=== PATIENT | female | born 1950 | race Caucasian/White ===

== ENCOUNTER → 2017-11-06 19:00 | Outpatient (CLI) | payer MEDICARE, BC | END | disposition home or self-care (01) | LOC: D.MAMMO 10:00 | DX: Z12.31 Encounter for screening mammogram for malignant neoplasm of breast (principal) ==

== ENCOUNTER → 2019-11-11 09:52 | Outpatient (CLI) | payer MEDICARE, OTHER | END | disposition home or self-care (01) | LOC: D.HCCARDIO 11-08 12:00 | PROVIDERS: ATTEND Internal Medicine Cardiovascular Disease | DX: I20.9 Angina pectoris, unspecified (principal) ==

== ENCOUNTER 2019-12-06 11:17 | Outpatient (CLI) | payer MEDICARE, OTHER ==
[~2019-12-06] VITALS: Ht 162.6 cm; Wt 88.3 kg
--- NOTE | ~2019-12-06 | HEMODYNAMI ---
PATIENT:JESSICA GUERRA MEDICAL RECORD: [id number] : 48 LOCATION:[facility] ADMISSION DATE: 12/06/19 Generatedon:12/06/201915:34 Patient name: JESSICA GUERRA Patient #: [id number] SSN: [id number] : 1950 Date of study: 12/06/2019 Page: Of Hemodynamic Procedure Report Patient Data Patient Demographics Procedure consent was obtained First Name: JESSICA Gender: Female Last Name: MARI : 1950 [facility] Initial: YUE Age: 69 year(s) Patient #: [id number] Race: Unknown SSN: [id number] Additional ID: [id number] Contact details Address: [address] [place] [address] State: [place] City: [place] Zip code: [address] Past Medical History Allergies: No known allergies Admission Admission Data Admission Date: 12/06/2019 Admission Time: 11:17 Arrival Date: 12/06/2019 Arrival Time: 0:00 Admit Source: Other Insurance Payor: Medicare [facility] #: [id number] Height (in.): 65 BSA: 1.94 (m2) Height (cm.): 165.1 BMI: 31.62 (kg/m2) Weight (lbs.): 190 Weight (kg.): 86.18 Lab Results Lab Result Date: 12/06/2019 Lab Result Time: 0:00 Biochemistry Name Units Result Min Max BUN mg/dl 13 --(--*-)-- 7 18 Creatinine mg/dl 0.9 --(-*--)-- 0.6 1.3 eGFR ml/min 66 *-(----)-- 90 120 NONAFRICAN CBC Name Units Result Min Max Hemoglobin g/dl 13.9 --(*---)-- 13.5 17.5 Procedure Procedure Types Cath Procedure Diagnostic Procedure LHC [facility] w/Coronaries Sedation Charges Moderate Sedation up to 15 minutes Moderate Sedation up to 45 minutes PCI Procedure Coronary Stent Coronary Stent Initial Hemochron ACT Test Procedure Description Procedure Date Procedure Date: 12/06/2019 Procedure Start Time: 14:44 Procedure End Time: 15:32 Procedure Staff Name Function Tripp Orta MD Performing Physician Mae Hutchins RT Monitor Tavia Shaffer RN Nurse Kathie Mohan RT Scrub Procedure Data Cath Procedure Fluoroscopy Diagnostic fluoroscopy Total fluoroscopy Time: time: 11.7 min 11.7 min Diagnostic fluoroscopy Total fluoroscopy dose: 748 dose: 748 mGy mGy Contrast Material Contrast Material Type Amount (ml) Isovue 300 162 Entry Location Entry Primary Successful Side Size Upsize Upsize Entry Closure Succes sful Closure Location (Fr) 1 (Fr) 2 (Fr) Remarks Device Remarks Femoral Right 5 Fr 6 Fr Exoseal artery Short Estimated blood loss: 10 ml Diagnostic catheters Device Type Used For End Catheter Placement MULTIPACK JL 4.0 5Fr Procedure catheter MULTIPACK 3DRC 5Fr Procedure catheter MULTIPACK Pigtail 5 Fr Ventriculography catheter Procedure Complications No complications Procedure Medications Medication Administration Route Dosage 0.9% NaCl I.V. 100 ml/hr Oxygen etCO2 Nasal cannula 2 l/min Lidocaine 2% added to field 20 Heparin Flush Bag added to field 2 bags (1000units/500ml NS) Versed I.V. 2 mg Fentanyl I.V. 50 mcg Versed I.V. 2 mg Fentanyl I.V. 50 mcg Heparin Bolus I.V. 8500 units Versed I.V. 2 mg Fentanyl I.V. 50 mcg Nitroglycerin IC/IA I.C. 100 mcg Nitroglycerin IC/IA I.C. 100 mcg Integrilin (Bolus I.V. 7.9 ml 2mg/ml) Integrilin (Bolus wasted 2.1 ml 2mg/ml) Plavix P.O. 600 mg Hemodynamics Rest BSA: 1.94 (m2) O2 Consumption: Estimated: 193.58 (ml/min) O2 Consumption indexed : Estimated:99.78 (ml/min/m) Heart Rate: 90 (bpm) Pressure Samples Time Site Value (mmHg) Purpose Heart Use Rate(bpm) 14:54 LV 133/8,15 Snapshot 90 14:54 AO 145/69(103) Pullback 67 14:54 LV 154/7,24 Pullback 67 Gradients Valve Time Site 1 Site 2 Mean SEP/DFP Peak To Heart Use (mmHg) (sec/min) Peak Rate (mmHg) (bpm) Aortic 14:54 LV AO 12 22 9 67 154/7,24 145/69(103) Calculations Valve P-P Mean Valve Index Valve Source Name Gradient Area Flow (cm2) Aortic 9 12 9 12 Snapshots Pre Cath Intra NCS Post Cath Vital Signs Time Heart Resp SPO2 etCO2 NIBP (mmHg) Rhythm Pain Sedation Rate (ipm) (%) (mmHg) Status Level (bpm) 14:20:07 58 10 97 34 146/69(119) SB 0 (11) 10(A) , No pain 14:25:06 55 18 98 36 Measuring SB 0 (11) 10(A) , No pain 14:25:20 55 15 98 39 143/75(127) SB 0 (11) 10(A) , No pain 14:29:42 59 18 96 37.5 137/78(119) SB 0 (11) 10(A) , No pain 14:34:41 62 17 98 36.7 Measuring NSR 0 (11) 10(A) , No pain 14:34:49 56 17 98 36 145/86(98) SB 0 (11) 10(A) , No pain 14:39:11 54 18 100 38.2 139/73(112) SB 0 (11) 10(A) , No pain 14:43:34 60 21 98 40.4 142/83(122) NSR 0 (11) 10(A) , No pain 14:47:56 60 16 97 39.7 131/75(113) NSR 0 (11) 10(A) , No pain 14:52:18 69 15 98 39.7 132/77(112) NSR 0 (11) 9(A) , No pain 14:56:38 63 15 98 38.9 141/80(120) NSR 0 (11) 9(A) , No pain 15:01:02 59 16 100 36.7 148/76(120) SB 0 (11) 9(A) , No pain 15:05:31 68 16 97 38.2 124/105(114) NSR 0 (11) 10(A) , No pain 15:10:30 67 18 98 38.2 Measuring NSR 0 (11) 10(A) , No pain 15:11:00 68 15 100 18.7 148/83(123) NSR 0 (11) 10(A) , No pain 15:15:25 72 14 98 1.4 165/89(137) NSR 0 (11) 10(A) , No pain 15:19:55 77 13 100 39.7 165/98(129) NSR 0 (11) 10(A) , No pain 15:24:23 73 21 97 36 157/91(121) NSR 0 (11) 10(A) , No pain 15:28:50 70 20 96 36.7 159/89(127) NSR 0 (11) 10(A) , No pain Medications Time Medication Route Dose Verified Delivered Reason Notes Effectiveness by by 14:19:00 0.9% NaCl I.V. 100 Tripp Tavia used for ml/hr You Shaffer battery charger 14:19:06 Oxygen etCO2 2 Tripp Tavia used for Nasal l/min You Shaffer procedure cannula RN 14:19:11 Lidocaine 2% added 20ml Tripp Tripp for local to vial You Orta MD anesthetic field 14:19:17 Heparin Flush added 2 Tripp Tripp used for Bag to bags You Orta MD procedure (1000units/500ml field NS) 14:38:55 Versed I.V. 2 mg Tripp Tavia for sedation You Shaffer RN 14:39:00 Fentanyl I.V. 50 Tripp Tavia for sedation mcg You Shaffer RN 14:46:03 Versed I.V. 2 mg Tripp Tavia for sedation You Shaffer RN 14:46:09 Fentanyl I.V. 50 Tripp Tavia for sedation mcg You Shaffer RN 15:01:31 Heparin Bolus I.V. 8500 Tripp Tavia for verif ied units You Shaffer anticoagulation with Dr. DARIAN Orta 15:08:34 Versed I.V. 2 mg Tripp Tavia for sedation You Shaffer RN 15:08:46 Fentanyl I.V. 50 Tripp Tavia for sedation mcg You Shaffer RN 15:17:13 Nitroglycerin I.C. 100 Tripp Tripp for IC/IA mcg You bernal 15:19:53 Nitroglycerin I.C. 100 Tripp Tripp for IC/IA mcg You Orta MD vasodilation 15:23:21 Integrilin I.V. 7.9 Tripp Tavia for (Bolus 2mg/ml) ml You Shaffer antiplatelet RN therapy 15:24:44 Integrilin wasted 2.1 Tripp Tavia for (Bolus 2mg/ml) ml You Shaffer antiplatelet RN therapy 15:24:49 Plavix P.O. 600 Tripp Tavia for mg You Shaffer antiplatelet RN therapy Procedure Log Time Note 14:04:13 Arrival Date: 12/06/2019 12:00:00 AM 14:04:30 Admit Source: Other 14:04:33 Insurance Payor : Medicare 14:04:54 Patient Weight : 190 lbs 14:05:03 Patient Height : 65 inches 14:09:34 Lab Result : eGFR NONAFRICAN 66 ml/min 14:09:34 Lab Result : Hemoglobin 13.9 g/dl 14:09:34 Lab Result : BUN 13 mg/dl 14:09:34 Lab Result : Creatinine 0.9 mg/dl 14:11:01 Procedure Status Elective Heart Cath (OP). 14:11:03 Kathie Mohan RT(R) (CV) sent for patient. Start room use. 14:11:19 Time tracking: Regular hours (M-F 7:00 - 5:00) 14:11:25 Plan of Care:Hemodynamics will remain stable., Cardiac rhythm will remain stable., Comfort level will be maintained., Respiratory function will remain adequate., Patient/ family verbilizes understanding of procedure., Procedure tolerated without complication., Recovers from procedure without complications.. 14:11:31 Patient received from Pre/Post Procedure Room to CCL 1 Alert and oriented. Tansferred to table in Supine position. 14:11:52 Warm blankets applied, and tay hugger turned on for patient comfort. 14:11:53 Correct patient and procedure confirmed by team. 14:12:00 ECG and BP/O2 sat monitors applied to patient. 14:12:23 H&P Date Dictated: 10/28/2019 Within 30 days and on chart., H&P Addendum completed by physician on day of procedure. (MUST COMPLETE FOR ALL OUTPATIENTS). 14:12:25 Pre-procedure instructions explained to patient. 14:12:31 Family in waiting room. 14:12:33 Patient NPO since Midnight. 14:12:45 Patient allergic to No known allergies 14:12:50 Is the patient allergic to Iodine/contrast media? No. 14:13:00 Was the patient premedicated? Yes 14:13:02 Is patient on blood thinner?No 14:13:04 Patient diabetic? No. 14:13:06 If diabetic: On Metformin? No 14:13:15 Snore? No 14:13:16 Sleep apnea? No 14:13:27 IV patent on arrival in right antecubital with 0.9% NaCl at [facility]. 14:13:37 Lab results completed and on chart. 14:13:46 Right Radial & Right Groin area was prepped with chlora-prep and draped in sterile fashion 14:13:49 Alarms reviewed by R. N. 14:13:50 Sharps counted by scrub and verified by R.N. 14:18:48 Informed consent obtained and on chart 14:18:51 Vital chart was started 14:19:00 0.9% NaCl 100 ml/hr I.V. was administered by Tavia Shaffer RN; used for procedure; Verbal order read back and verified. 14:19:06 Oxygen 2 l/min etCO2 Nasal cannula was administered by Tavia Shaffer RN; used for procedure; Verbal order read back and verified. 14:19:11 Lidocaine 2% 20ml vial added to field was administered by Tripp Orta MD; for local anesthetic; Verbal order read back and verified. 14:19:17 Heparin Flush Bag (1000units/500ml NS) 2 bags added to field was administered by Tripp Orta MD; used for procedure; Verbal order read back and verified. 14:36:36 Physician arrived 14:36:37 --------ALL STOP TIME OUT------ 14:36:38 Final Timeout: patient, procedure, and site verified with staff and physician. All members of the team are in agreement. 14:38:55 Versed 2 mg I.V. was administered by Tavia Shaffer RN; for sedation; Verbal order read back and verified. 14:39:00 Fentanyl 50 mcg I.V. was administered by Tavia Shaffer RN; for sedation; Verbal order read back and verified. 14:44:07 Right groin site verified by team. 14:44:13 Fire Safety Assessment: A--An alcohol-based skin anteseptic being used preoperatively., C--Open oxygen or nitrous oxide is being used., D--An ESU, laser, or fiber-optic light is being used. 14:44:17 Physical assessment completed. ASA score P 2 - A patient with mild systemic disease as per Tripp Orta MD. 14:44:22 2) 60-89 Mildly reduced kidney function, and other findings (as for stage 1) point to kidney disease. 14:44:26 Maximum allowable contrast dose (3.7 X eGFR X 0.75)183 ml. 14:44:33 Sedation plan: IV Moderate Sedation Medication:Versed, Fentanyl 14:44:38 Use device set Femoral Dx 14:44:40 Procedure started. 14:44:40 Full Disclosure recording started 14:44:52 Local anesthetic to right femoral artery with Lidocaine 2% by Tripp Orta MD.INITIAL ACCESS ONLY 14:44:53 ACIST Syringe (00015) opened to sterile field. 14:44:54 Bag Decanter (2002S) opened to sterile field. 14:44:54 Medline Cath Pack ([id number]) opened to sterile field. 14:44:55 ACIST Hand Control (22387) opened to sterile field. 14:44:56 ACIST Manifold (49468) opened to sterile field. 14:44:56 DIAGNOSTIC Multipack 5Fr catheter set (MI2566) opened to sterile field. 14:44:57 Tegaderm 4 x 4 (1626W) opened to sterile field. 14:45:00 SHEATH 5FR [place] (ZQR481) opened to sterile field. 14:45:01 EMERALD Guide Wire (319-337) opened to sterile field. 14:45:12 A 5 Fr sheath was inserted into the Right Femoral artery 14:45:16 J wire advanced. 14:46:03 Versed 2 mg I.V. was administered by Tavia Shaffer RN; for sedation; Verbal order read back and verified. 14:46:09 Fentanyl 50 mcg I.V. was administered by Tavia Shaffer RN; for sedation; Verbal order read back and verified. 14:46:12 A MULTIPACK JL 4.0 5Fr catheter was advanced over the wire and used for Procedure. 14:46:16 LCA angiography performed. 14:49:47 Catheter removed. 14:49:57 A MULTIPACK 3DRC 5Fr catheter was advanced over the wire and used for Procedure. 14:50:01 RCA angiography performed. 14:51:38 Catheter removed. 14:52:04 A MULTIPACK Pigtail 5 Fr catheter was advanced over the wire and used for Ventriculography. 14:53:41 LV gram done using TOM 14:54:30 EF : 60 % 14:56:33 Catheter removed. 14:59:36 SHEATH 6FR [place] (ERG497) opened to sterile field. 14:59:36 INFLATOR Merit BasixCompak (NV3559) opened to sterile field. 14:59:37 BMW 300cm Veblen 2 J wire ([id number]) opened to sterile field. 14:59:38 TUBING High Pressure Extension Tubing (You) ([id number]) opened to sterile field. 14:59:38 GUIDE 6FR XBLAD 3.5 catheter (60297869) opened to sterile field. 14:59:39 BMW 190cm Veblen 2 J wire ([id number]) opened to sterile field. 14:59:45 Proceeding to intervention. 14:59:56 Sheath upsized to a 6 Fr Short. 15:00:21 Pre PCI Site: [place] mLAD has 90% stenosis. 15:00:32 6 Fr XBLAD3.5 guide catheter was inserted over the wire 15:01:31 Heparin Bolus 8500 units I.V. was administered by Tavia Shaffer RN; for anticoagulation; verified with Dr. Orta Verbal order read back and verified. 15:01:50 BMW wire advanced. 15:04:14 Long BMW down LAD, Short BMW down diag 15:08:34 Versed 2 mg I.V. was administered by Tavia Shaffer RN; for sedation; Verbal order read back and verified. 15:08:46 Fentanyl 50 mcg I.V. was administered by Tavia Shaffer RN; for sedation; Verbal order read back and verified. 15:12:58 unable to wire the diagonal. short BMW removed 15:16:35 Place stent Inflation Number: 1 A MARTHA OTW 3.0 x 22 stent ([id number]) was prepped and advanced across the Prox LAD 90. The stent was deployed at 12 SITA for 0:26 (min:sec) 0. 15:17:13 Nitroglycerin IC/IA 100 mcg I.C. was administered by Tripp Orta MD; for vasodilation; Verbal order read back and verified. 15:19:53 Nitroglycerin IC/IA 100 mcg I.C. was administered by Tripp Orta MD; for vasodilation; Verbal order read back and verified. 15:20:03 EXOSEAL 6Fr (EX600) opened to sterile field. 15:20:18 Stent catheter was removed intact over wire. 15:21:13 Wire removed. 15:22:01 Guide catheter removed. 15:23:03 Sheath removed intact; hemostasis achieved with Exoseal to the Right Femoral artery. 15:23:12 Procedure ended.(Physican Out) 15:23:21 Integrilin (Bolus 2mg/ml) 7.9 ml I.V. was administered by Tavia Shaffer RN; for antiplatelet therapy; Verbal order read back and verified. 15:24:44 Integrilin (Bolus 2mg/ml) 2.1 ml wasted was administered by Tavia Shaffer RN; for antiplatelet therapy; Verbal order read back and verified. 15:24:49 Plavix 600 mg P.O. was administered by Tavia Shaffer RN; for antiplatelet therapy; Verbal order read back and verified. 15:25:23 ACT drawn and resulted at >400- out of range seconds. (normal therapeutic range 180-240 seconds). 15:25:41 Fluoroscopy time 11.70 minutes. 15::46 Fluoroscopy dose: 748 mGy 15::46 Flurop Dose total: 748 15:25:52 Dose Area Product 94320 mGy/cm. 15:26:00 Contrast amount:Isovue 300 162ml. 15:26:03 Maximum allowable dose exceeded? No. 15::26 Sharps counted by scrub and verified by R.N. 15::28 Insertion/operative site no bleeding no hematoma. 15:26:36 Post-op/insertion site Right Femoral artery dressed using a 4 x 4 and Tegaderm. 15:26:40 Post right femoral artery:stable 15:27:09 Post Procedure Pulses reassessed and unchanged 15:27:13 Post procedure rhythm: sinus rhythm 15::17 Estimated blood loss: 10 ml 15:27:25 Post procedure instruction explained to patient.Patient verbalizes understanding. 15:28:04 Procedure type changed to Cath procedure, Diagnostic procedure, LHC, [facility] w/Coronaries, Sedation Charges, Moderate Sedation up to 15 minutes, Moderate Sedation up to 45 minutes, PCI procedure, Coronary Stent, Coronary Stent Initial, Hemochron ACT Test 15:28:06 Procedure and supply charges have been captured, reviewed, submitted and are correct. 15:29:39 Procedure and supply charges have been captured, reviewed, submitted and are correct. 15:31:48 Procedure Complication : No complications 15:31:51 Vital chart was stopped 15:31:55 [facility] Findings: MVD- PCI performed (see procedure note) 15:32:00 Operative report dictated upon procedure completion. 15:32:01 See physician's report for complete and final results. 15:32:03 Report given to Pre/Post Procedure Room. 15:32:05 Patient transfered to Pre/Post Procedure Room with Stretcher. 15:32:07 Procedure ended. 15:32:07 Full Disclosure recording stopped 15:32:10 End room use (Document Last) 15:32:15 ACC-PCI Only Patient was given prescriptions, or instructed by Tripp Orta MD to start/continue the following medications upon discharge: Plavix Intervention Summary Intervention Notes Time ActionType Lesion and Equipment Action# Pressure Duration Attributes Used 15:16:35 Place stent Prox LAD MARTHA OTW 3.0 1 12 00:26 x 22 stent ([id number]) Device Usage Item Name Manufacture Quantity Catalog Hospital Part Current Mini [facility] Lot# / Number Charge Number Stock Stock Serial# Code ACIST Syringe Acist 1 61553 536083 730561 429506 20 (42265) Medical Systems Inc Bag Decanter Microtek 1 917919 23403 966159 5 () Medical Inc. Medline Cath Medline 1 [id number] 085582 05944 858790 5 Pack ([id number]) ACIST Hand Acist 1 14124 341830 119504 055794 5 Control Medical (43930) Systems Inc ACIST Acist 1 61347 988386 380349 572282 5 Manifold Medical (57992) Systems Inc DIAGNOSTIC Cardinal 1 [id number] 179616 99370 733505 30 Multipack 5Fr Health catheter set (CO1652) Tegaderm 4 x 3M 1 1626W 608055 614474 598804 5 4 (1626W) SHEATH 5FR Terumo 1 JPC556 500155 105850 997529 5 [place] (ORL472) EMERALD Guide Cardinal 1 502-455 938299 239478 487413 5 Wire Health (502-455) MULTIPACK JL Cardinal 1 901101 5 4.0 5Fr Health catheter MULTIPACK Cardinal 1 196341 5 3DRC 5Fr Health catheter MULTIPACK Cardinal 1 892592 5 Pigtail 5 Fr Health catheter SHEATH 6FR Terumo 1 NBN493 279229 225363 933386 40 [place] (LCD450) INFLATOR Merit 1 SU5080 241288 622789 401074 15 Merit Medical BasixCompak (UF0275) BMW 300cm Sarah 1 [id number] 165672 910409 639262 5 Veblen 2 J Vascular wire (2318068H) TUBING High Merit 1 [id number] 766698 06792 685373 10 Pressure Medical Extension Tubing (Orta) ([id number]) GUIDE 6FR Cardinal 1 [id number] 865565 844247 469080 10 XBLAD 3.5 Health catheter (26418107) BMW 190cm Sarah 1 [id number] 611920 30733 100904 5 Veblen 2 J Vascular wire (0112249M) MARTHA OTW 3.0 Medtronic 1 [id number] 733608 4724663 401655 5 [id number] x 22 stent ([id number]) EXOSEAL 6Fr Cardinal 1 EX600 917519 498400 720899 10 (EX600) Health Signature Audit [place] Stage Time Signature Unsigned Intra-Procedure 12/06/2019 Mae Hutchins 3:32:49 PM RT(R) Intra-Procedure 12/06/2019 Tavia Shaffer 3:34:27 PM RN Intra-Procedure 12/06/2019 Tripp Orta MD 3:34:51 PM [place] [id number] [facility] [address]
[2019-12-06] MEDS ORDERED: LISINOPRIL5 MG PO (12:23)
[2019-12-06] MEDS ORDERED: LEVOTHYROXINE50 MCG PO (12:23)
[2019-12-06] MEDS ORDERED: BISOPROLOL-HCT1 EAC3 PO (12:23)
[2019-12-06] MEDS ORDERED: LIPITOR10 MG PO (12:24)
[2019-12-06 12:30] VITALS: BP 139/60; Ht 162.6 cm; Wt 88.3 kg
[2019-12-06 12:46] LABS: BASOPHILS 0.5 % (0-2); EOSINOPHILS 0.6 % (0-7); HEMATOCRIT 41.2 % (36.0-48.0); HEMOGLOBIN 13.9 g/dL (12-16); IMMATURE GRANULOCYTES 0.2 % (0-5); LYMPHOCYTES 36.8 % (15-50); MCH 32.4 pg (26.0-34.0); MCHC 33.7 g/dL (31.0-37.0); MEAN PLATELET VOLUME 8.8 fL (7.4-10.4); MONOCYTES 5.8 % (2-11); NEUTROPHILS 56.1 % (40-80); PLATELET COUNT 212 10x3/uL (130-400); RBC 4.29 10x6/uL (4.00-5.40); RDW 12.8 % (11.5-14.5); WBC 6.3 10x3/uL (4.8-10.8)
[2019-12-06 13:00] LABS: ANION GAP 9.6 mmol/L (8-16); CALCIUM 9.2 mg/dL (8.5-10.1); CARBON DIOXIDE 29.3 mmol/L (21.0-32.0); CHOL - HDL RATIO 2.8 ratio (2.3-4.1); CREATININE - SERUM 0.9 mg/dL (0.6-1.3); LDL-HDL RATIO 1.5 ratio (1.5-3.5); POTASSIUM - SERUM 3.9 mmol/L (3.5-5.1)
--- NOTE | 2019-12-06 15:47 | NUR ---
PT REC'D TO ROOM 4 VIA STRETCHER FROM [facility] COORD[facility]. MONITORS ESTAB. AT BS. SEE LEHR TENDER. ALARMS ON AND C/L IN REACH.
--- NOTE | 2019-12-06 16:00 | NUR ---
R GROIN SITE C/D/I, NO CHANGE IN SMALL OF SWELLING UNDER DSG. PULSES PALP, NO S/S BLEEDING OR HEMATOMA. PT DENIES ANY CHEST DISCOMFORT AT THIS TIME, C/O CHRONIC BACK PAIN, STATES " I CAN NEVER LAY FLAT IN A BED". DR. MEYER NOTIFIED - SEE NEW ORDER.
--- NOTE | 2019-12-06 16:15 | NUR ---
ADMIN NORCO 10/325 MG PO PER MD ORDER.
[2019-12-06] MEDS ORDERED: BAYER CHEWABLE81 MG PO (16:17)
[2019-12-06] MEDS ORDERED: PLAVIX75 MG PO (16:17)
--- NOTE | 2019-12-06 16:30 | NUR ---
R GROIN SITE C/D/I, NO S/S BLEEDING, NO CHANGE IN SMALL AREA OF FIRMNESS UNDER DSG, OTHERWISE SOFT, PULSES PALP.
--- NOTE | 2019-12-06 16:45 | NUR ---
R GROIN SITE C/D/I, NO CHANGES NOTED, PULSES PALP. PT TAKING ICE CHIPS. DENIES OTHER NEEDS.
--- NOTE | 2019-12-06 16:55 | NUR ---
PT RESTING QUIETLY, VSS. R GROIN SITE C/D/I, NO S/S BLEEDING. PULSES PALP. PT REPORTS "FEELING MUCH BETTER". AT BS. ALARMS ON.
--- NOTE | 2019-12-06 17:15 | NUR ---
R GROIN SITE C/D/I, NO S/S BLEEDING. PULSES PALP. PT REPOSITIONED UP IN BED AND LOG ROLLED TO R SIDE WITH PILLOWS, FOR COMFORT. VSS. C/L IN REACH.
--- NOTE | 2019-12-06 17:50 | NUR ---
R GROIN SITE C/D/I, NO S/S BLEEDING. VSS. PT VISITING WITH . PULSES PALP. PT DENIES NEEDS.
--- NOTE | 2019-12-06 18:20 | NUR ---
R GROIN SITE C/D/I, NO S/S BLEEDING. PULSES PALP AND R LEG/FOOT WARM. WILL BEGIN GRADUALLY RAISING HOB. VSS. C/L IN REACH.
--- NOTE | 2019-12-06 18:30 | NUR ---
R GROIN SITE C/D/I, NO S/S BLEEDING OR SWELLING. PULSES PALP. HOB UP AND SANDWICH TRAY/DIET COLA PROVIDED.
--- NOTE | 2019-12-06 18:47 | NUR ---
R GROIN SITE C/D/I, NO S/S BLEEDING OR SWELLING, PULSES PALP. VSS. PT DENIES NEEDS. C/L IN REACH.
--- NOTE | 2019-12-06 19:10 | NUR ---
ALL DISCHARGE INSTRUCTIONS REVIEWED WITH PT AND HER , INCLUDING RESTRICTIONS, NEW MEDICATIONS, AND F/U APPT. UNDERSTANDING VERBALIZED.
--- NOTE | 2019-12-06 19:15 | NUR ---
PIV D/C'D INTACT, DSG APPLIED AND PT ALLOWED UP TO GET DRESSED AND GO TO BR INDEPENDENTLY.
--- NOTE | 2019-12-06 19:30 | NUR ---
PT D/C'D VIA W/C TO PRIVATE VEHICLE WITH . PT HAS NEW SCRIPTS, ALL PAPER WORK AND BELONGINGS.
== END 2019-12-06 19:30 | disposition home or self-care (01) ==
LOC: D.CATH 11:17
PROVIDERS: ATTEND Internal Medicine Cardiovascular Disease
DX: I25.119 Atherosclerotic heart disease of native coronary artery with unspecified angina pectoris (principal); R94.39 Abnormal result of other cardiovascular function study; E78.5 Hyperlipidemia, unspecified; I10 Essential (primary) hypertension; E03.9 Hypothyroidism, unspecified
CPT/HCPCS: 93458; C9600